=== PATIENT | female | born 1955 | race Caucasian/White ===

== ENCOUNTER 2018-06-24 06:24 | Day surgery (SDC) | payer OTHER ==
--- NOTE | 2018-06-17 15:55 | RAD REPORT ---
EXAM DESCRIPTION: RAD - Chest Pa And Lat (2 Views) - 06/17/2018 3:51 pm CLINICAL HISTORY: preop Chest pain. COMPARISON: CHEST PA AND LAT 2 VIEW dated 09/14/2012; CHEST PA AND LAT 2 VIEW dated 09/02/2012; ABDOMEN ACUTE SERIES dated 10/06/2005 FINDINGS: The lungs are clear. The heart is normal in size. No displaced fractures. IMPRESSION: No acute or concerning finding suspected.
[2018-06-17 16:39] LABS: Protime INR 1.03
--- NOTE | 2018-06-17 20:55 | EKG ---
Test Date: 2018-06-17 Test Time: 16:35:32 Enrollment Management Director: SOUMYA MEASUREMENT RESULTS: Intervals: Rate: 79 AL: 134 QRSD: 78 QT: 428 QTc: 490 [place]: P: 69 AL: 134 QRS: 27 T: 44 INTERPRETIVE STATEMENTS: Normal sinus rhythm Prolonged QT Abnormal ECG Compared to ECG 10/06/2005 21:47:44 Prolonged QT interval now present Ventricular premature complex(es) no longer present ST (T wave) deviation no longer present Electronically Signed On 06-17-18 20:54:37 SUPERVISOR RECEIVING AND PROCESSING by Eliot Iniguez
[2018-06-24] MEDS ORDERED: Ringers Lactate 1,000 ML IV ONE ×2 (06:45→08:33)
[2018-06-24] MEDS ORDERED: CEFAZOLIN/SWI 1gm 0 GM/0 ML SYR ONE (06:45)
[2018-06-24] MEDS ORDERED: LIDOCAINE 1% MPF 5 ML VIAL ONE (07:09)
[2018-06-24] MEDS ORDERED: PROPOFOL 200 MG/20 ML VIAL IV ONE (07:30)
[2018-06-24] MEDS ORDERED: MIDAZOLAM HCL 2 MG/2 ML INJ ONE (07:31)
[2018-06-24] MEDS ORDERED: LIDOCAINE 2% MPF 5 ML VIAL ONE (07:31)
[2018-06-24] MEDS ORDERED: FENTANYL CITR 100 MCG/2 ML ONE (07:31)
[2018-06-24] MEDS ORDERED: BUPIVACAINE 0.25% PF 10 ML VIAL ONE (07:33)
[2018-06-24] MEDS ORDERED: CLINDAMYCIN INJ 600 MG in NA CHLORIDE 0.9% 50 ML IV ONE (08:00)
--- NOTE | 2018-06-24 09:11 | P.BOP ---
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
[2018-06-24] MEDS: HYDROMORPHONE HCL 1 MG/ML INJ ONE ×2 (09:30→09:40)
[2018-06-24 10:11] VITALS: BP 148/73; TEMP 96.9; O2SAT 98
[2018-06-24] MEDS ORDERED: HYDROCODONE/APAP 7.5/325 MG TAB ONE (10:28)
--- NOTE | 2018-06-24 13:27 | RAD REPORT ---
EXAM DESCRIPTION: RAD - Foot Right 3 View - 06/24/2018 9:30 am CLINICAL HISTORY: Right metatarsal fracture repair COMPARISON: Pre-surgical June 11 FINDINGS: There were 50 portable C-arm views obtained during a fluoroscopic assisted placement of fr acture fixation hardware. No suspicious or unexpected finding. Fluoro time was 1.3 minutes
--- NOTE | 2018-06-24 14:20 | RAD REPORT ---
EXAM DESCRIPTION: RAD - Foot Right 2 View - 06/24/2018 9:51 am CLINICAL HISTORY: Fifth metatarsal fracture FINDINGS: A screw affixes a fracture in good alignment of the proximal fifth metatarsal.
--- NOTE | 2018-06-25 09:54 | OP ---
Date of Procedure: 06/24/2018 Surgeon: Bob Cook MD Preoperative Diagnosis: Right fifth metatarsal nonunion. Postoperative Diagnosis: Right fifth metatarsal nonunion. Procedure Performed: Closed reduction and percutaneous screw fixation of right fifth metatarsal antonia galloway. Anesthesia: General LMA. Fluids: Per Anesthesia record. Estimated Blood Loss: Less than 5 cc. Complications: None. Tourniquet Time: 40 minutes at 250 mmHg. Implants: A 5.5 mm x 50 mm Arthrex screw. Indication For Procedure: Nuha is a 63-year-old female who presented to my clinic last week with co ntinued pain of her right foot. She had been seen in my clinic in the past for a fifth metatarsal fr acture of right foot. She went to clinical and overall radiographic union with a CT scan demonstrati ng bridging callus; however, she had pain that began over the last couple of weeks. She had a repeat x-ray of her right foot, which demonstrated some gapping at the fracture consistent with nonunion. Given her continued pain, recommended surgical treatment of her nonunion. She expressed understandin g and elected to proceed with operative treatment. Description Of Procedure: After informed consent was obtained, the patient was identified in the pre operative holding area. The right lower extremity was marked. The patient was then brought back to the operating room, transferred to the operating table in supine fashion, placed under general LMA an esthesia. Right lower extremity was then prepped and draped in usual sterile fashion. A time-out wa s initiated. The correct patient and procedure were performed and identified. The patient did recei ve her preoperative prophylactic antibiotics. Right lower extremity was exsanguinated with an Esmarc h and the tourniquet was inflated at 250 mmHg. Approximately, a 2 cm longitudinal incision was made just proximal to the fifth metatarsal. Blunt dissection was then taken to the proximal aspect of the fifth metatarsal. A soft tissue protector was introduced in a high and tight position along the pro ximal aspect of the fifth metatarsal alignment along with intramedullary canal. A K-wire was then in troduced within the soft tissue protector and a guidewire was placed down the fifth metatarsal shaft antegrade fashion. Fluoroscopy was then used to ensure proper placement of the guide pin down the in tramedullary canal and there was no breakout of the distal cortex. Next, over the guide pin a cannul ated drill was then placed and passed down past the fracture line followed a tap. A 4.5 mm tap was f irst used and there was not a good amount of bite, and so a 5.5 tap was then introduced and there was good purchase within the intramedullary canal with the 5.5 screw and a 5.5 screw was selected. It w as measured in a 50 mm screw was selected. Guidewire and drill were then removed and a 5.5 mm x 50 m m screw was then placed. There was good fixation and bite of the screw within intramedullary canal a nd compression was noted at the fracture site. The fracture site was noted to have more of hypertrop hic nonunion, which was consistent with more of need for stabilization and at that point, it was elec gerry to proceed with just fixation of the fracture without bone grafting. The wound was then irrigate d thoroughly with normal saline. Skin was approximated using a 3-0 nylon. Sterile dressings were ap plied. The patient was placed in a posterior splint. She was awakened and transferred to PACU in st able condition. Postoperative Plan: She will be nonweightbearing of the right lower extremity and follow up in my cl inic in 2 weeks for wound check and suture removal. CV/MODL Voice ID: [id number] Report ID: [id number]
== END 2018-06-24 11:18 | disposition home or self-care (01) ==
LOC: OR 06:24
PROVIDERS: ATTEND Orthopaedic Surgery Sports Medicine
PROC: 0QSN34Z Reposition Right Metatarsal with Internal Fixation Device, Percutaneous Approach (ICD-10-PCS; principal; 2018-06-24 07:30)
DX: S92.354K Nondisplaced fracture of fifth metatarsal bone, right foot, subsequent encounter for fracture with nonunion (principal); M06.849 Other specified rheumatoid arthritis, unspecified hand; I10 Essential (primary) hypertension; E78.00 Pure hypercholesterolemia, unspecified; K21.9 Gastro-esophageal reflux disease without esophagitis; Z88.2 Allergy status to sulfonamides; Z87.891 Personal history of nicotine dependence; Z82.61 Family history of arthritis; Z82.49 Family history of ischemic heart disease and other diseases of the circulatory system
CPT/HCPCS: 36415; 71046; 85610; 85730; 93005; J0690; J1170; J2250; J2704; J3010

== ENCOUNTER 2019-03-05 08:50 | Emergency (ER) | payer OTHER ==
--- OUTSIDE RECORDS SUMMARY | 2019-03-05 08:51 | XMS REPORT ---
:1955 [facility] [address] [place] [address] Care Team Providers Name Role Phone Unavailable Unavailable Unavailable Payers Payer Name Policy Type Policy Number Effective Date Expiration Date Problems This patient has no known problems. Allergies, Adverse Reactions, Alerts Allergy Name Allergy Status Severity Reaction(s) Onset Inactive Treating Comments Type Date Date Clinician Penicillins DA Active ID 2012-0 04-22 00:00: 00 Sulfa DA Active ID (Sulfonamide 04-22 Antibiotics) 00:00: 00 erythromycin DA Active ID 2012- base 04-22 00:00: 00 Medications This patient has no known medications.
[2019-03-05] MEDS ORDERED: HYDROCODONE/APAP 10/325 TAB ONE (09:15)
--- NOTE | 2019-03-05 10:40 | RAD REPORT ---
EXAM DESCRIPTION: RAD - Humerus Right - 03/05/2019 9:59 am CLINICAL HISTORY: fall Fall, trauma, right shoulder pain COMPARISON: No comparisons FINDINGS: Mild AC joint degenerative changes are present. No acute fracture or dislocation evident.
--- NOTE | 2019-03-05 10:44 | RAD REPORT ---
EXAM DESCRIPTION: RAD - Shoulder Right 2 View - 03/05/2019 10:01 am CLINICAL HISTORY: fall Trauma, fall COMPARISON: No comparisons FINDINGS: AC joint and glenohumeral joint arthritic changes are noted. No acute fracture or dislocat ion is evident.
--- NOTE | 2019-03-05 10:54 | RAD REPORT ---
EXAM DESCRIPTION: RAD - Hip Right 2 View - 03/05/2019 9:57 am CLINICAL HISTORY: fall Trauma, fall, hip pain COMPARISON: No comparisons FINDINGS: Degenerative changes are present in the right hip, mild to moderate in severity. No defini tive fracture seen. If the patient is unable to bear weight, consider MR imaging followup.
--- NOTE | 2019-03-05 10:58 | RAD REPORT ---
EXAM DESCRIPTION: RAD - Lumbar Spine 3 Views - 03/05/2019 9:59 am CLINICAL HISTORY: fall Radiculopathy COMPARISON: No comparisons FINDINGS: Vertebral body heights appear maintained. No compression fracture noted. Mild disc thinnin g is present at L4-5 and L5-S1. Prominent facet hypertrophy also noted at these levels. IMPRESSION: Mild to moderate lower lumbar spondylosis.
--- NOTE | 2019-03-05 11:00 | RAD REPORT ---
EXAM DESCRIPTION: RAD - Pelvis - 03/05/2019 9:57 am CLINICAL HISTORY: fall Fall, trauma, pain COMPARISON: No comparisons FINDINGS: No acute fracture or dislocation evident.
[2019-03-05] MEDS ORDERED: dexAMETHasone 10 MG/ML VIAL ONE (11:10)
[2019-03-05] MEDS ORDERED: MORPHINE 4 MG/ML SYR ONE (11:11)
[2019-03-05] MEDS ORDERED: DIAZEPAM 5 MG TABLET ONE (11:11)
--- NOTE | 2019-03-05 14:56 | RAD REPORT ---
EXAM DESCRIPTION: MRI - Lumbar Spine Wo Con - 03/05/2019 2:38 pm CLINICAL HISTORY: Fall, back pain, acute onset right leg weakness COMPARISON: Lumbar spine films March 05, 2019, MRI August 2015 TECHNIQUE: Sagittal T1-weighted, T2-weighted and T2-STIR weighted sequences were obtained. Axial T1 -weighted and heavily T2-weighted sequenceswere obtained through the lumbar disc levels. FINDINGS: Lumbar bodies are normal in height and alignment. Scattered fatty marrow degenerative fabian ges are present. No suspicious marrow signal. No paraspinal masses. Conus is normal with no clumping or thickening of the cauda equina. T12-L1 level: No significant findings. L1-2 level: No significant findings. L2-3 level: No significant findings. L3-4 level: Moderately prominent disc bulge is present extending across the central canal and into ea ch exit foramen. Prominent facet joint degenerative changes are present along with ligamentous thicke matt. Mild foraminal encroachment changes are present with perineural fat still surrounding the exiti ng nerve roots. Midline canal diameter is 12 mm. Disc shows desiccation change. L4-5 level: Disc is desiccated. There is a mild bulging of disc material across the central canal and into each exit foramen. Facet degenerative change and ligamentous thickening are present. In the rig ht posterior central canal at this level there is a 12 x 6 millimeter focus of hypointense T1 and T2/ IR signal. This is associated with the posterior elements. Provided history indicates no lumbar surge ry; however, there appears to be a partial laminectomy on the right. T2 STIR imaging shows hyperinten se signal posterior to the facet joints and lamina. Spinal stenosis to 6 mm noted. L5-S1 level: No herniation or significant disc bulge. Facet degenerative change and ligamentous thick ening present. Small fluid collection is seen posterior to the right facet joint. IMPRESSION: Significant L4-5 central spinal stenosis to 6 mm noted along with right foraminal stenos is. Patient has advanced facet degenerative change at L4-5 and what appears to be a partial laminectomy o n the right. Provided history indicated no surgery. Patient likely has scar tissue in this region. The 12 x 6 mm hypointense focus along the right ligament may be focal calcification related to prior injury or surgery. This is the primary factor for the spinal stenosis. Disc bulge and prominent facet degenerative change L3-4 resulting in mild foraminal encroachment but no central spinal stenosis. No compression fracture or acute vertebral body finding.
--- NOTE | 2019-03-05 15:07 | RAD REPORT ---
EXAM DESCRIPTION: MRI - Hip Right Wo Cont - 03/05/2019 2:37 pm CLINICAL HISTORY: Fall, pelvic pain COMPARISON: Pelvis plain films same date, right hip films same date TECHNIQUE: Multiplanar imaging of the pelvis performed using T1 weighted, T2 fat saturation, proton density and T2 stir sequencing. FINDINGS: Sacral ala intact. No acute fractures of the bony pelvis seen. No proximal femur fracture. No AVN or focal femoral head abnormality at either hip joint. No joint effusion. There is extensive edema signal surrounding the right ischium. There is slight cortical irregularity at the inferior margin of the ischium. The biceps femoris and semimembranosus tendons appear to have been avulsed from the ischium. Tendons are retracted inferiorly from the ischium and there is signifi cant edema and hemorrhagic material in the surrounding tissues. On a pelvis and hip MRI protocol full extent of this injury is difficult to document. IMPRESSION: Avulsion of the right biceps femoris and semimembranosus tendons from the ischium. There is significant surrounding edema and some hemorrhagic material in the soft tissues surrounding the i schium. No hip fracture. No acute pelvic finding otherwise noted.
--- NOTE | 2019-03-05 16:08 | ER ---
Nurse's Notes [facility] Name: Nuha Steele Age: 63 yrs Sex: Female : 1955 Arrival Date: 03/05/2019 Time: 08:52 Bed 15 Private MD: Diagnosis: Sprain of hip;Sprain of shoulder joint Presentation: 03/05 09:01 Presenting complaint: EMS states: MECHANICAL FALL THIS AM, R SHOULDER AND HIP PAIN. bp Transition of care: patient was not received from another setting of care. Onset of symptoms was March 05, 2019 at 07:00. Risk Assessment: Do you want to hurt yourself or someone else? Patient reports no desire to harm self or others. Initial Sepsis Screen: Does the patient meet any 2 criteria? No. Patient's initial sepsis screen is negative. Does the patient have a suspected source of infection? No. Patient's initial sepsis screen is negative. Care prior to arrival: None. 09:01 Method Of Arrival: EMS: [facility] bp 09: Acuity: GIANLUCA 3 bp Triage Assessment: 09:03 General: Appears in no apparent distress. uncomfortable, Behavior is cooperative, bp appropriate for age, anxious. Pain: Complains of pain in right hip, anterior aspect of right shoulder and right leg. EENT: No deficits noted. Neuro: No deficits noted. Cardiovascular: No deficits noted. Respiratory: No deficits noted. GI: No signs and/or symptoms were reported involving the gastrointestinal system. : No signs and/or symptoms were reported regarding the genitourinary system. Derm: No deficits noted. Musculoskeletal: No deficits noted. Historical: - Allergies: 09:03 Sulfa (Sulfonamide Antibiotics); bp - Home Meds: 09:03 gabapentin oral oral [Active]; losartan oral oral [Active]; Celebrex Oral [Active]; bp - PMHx: 09:03 Rheumatoid Arthritis; Hypertension; bp - Immunization history:: Adult Immunizations up to date. - Social history:: Smoking status: Patient/guardian denies using tobacco. - Ebola Screening: : No symptoms or risks identified at this time. Screenin:06 Abuse screen: Denies threats or abuse. Denies injuries from another. Nutritional bp screening: No deficits noted. Tuberculosis screening: No symptoms or risk factors identified. Fall Risk None identified. Assessment: 09:06 General: SEE TRIAGE NOTE. bp 09:30 Reassessment: PT TO RADIOLOGY. bp 10:06 Reassessment: PT RETURNED FROM RADIOLOGY. bp 11:00 Reassessment: PT OUT OF BED TO B/S COMMODE. bp 12:00 Reassessment: PROVIDER AT B/S FOR RE-EVAL, PT AFFIRMS UNABLE TO AMBULATE. bp 12:59 Reassessment: MRI PENDING. bp 13:29 Reassessment: PT TO MRI. bp 15:01 Reassessment: PT RETURNED FROM MRI. bp 16:13 Reassessment: PT D/C HOME VIA W/C WITH FAMILY, DX WITH HIP AND SHOULDER SPRAIN. bp Vital Signs: 09:03 BP 150 / 68; Pulse 72; Resp 18; Temp 98; Pulse Ox 100% ; Weight 72.57 kg; bp 10:07 BP 153 / 77; Pulse 76; Resp 16; Pulse Ox 100% ; bp 12:00 BP 146 / 77; Pulse 70; Resp 16; Pulse Ox 99% ; bp 12:59 BP 145 / 82; Pulse 77; Resp 16; Pulse Ox 99% ; bp 15:02 BP 133 / 79; Pulse 77; Resp 16; Pulse Ox 96% ; bp ED Course: 08:52 Patient arrived in ED. em1 08:58 Rafa Mccartney, RN is Primary Nurse. bp 09:01 Triage completed. bp 09:03 Arm band placed on. bp 09:06 Campos Kennedy PA is PHCP. jmm 09:06 Remington Lu MD is Attending Physician. jmm 09:06 Patient has correct armband on for positive identification. Bed in low position. Call bp light in reach. Side rails up X2. Adult w/ patient. 09:59 Humerus Right XRAY In Process Unspecified. EDMS 09:59 Shoulder Right (2 View) XRAY In Process Unspecified. EDMS 09:59 Pelvis XRAY In Process Unspecified. EDMS 09:59 Hip Right 2 View XRAY In Process Unspecified. EDMS 09:59 Lumbar Spine (3 Views) XRAY In Process Unspecified. EDMS 13:40 Patient moved to MRI via stretcher. em2 13:52 MRI Lumbar Spine wo Con In Process Unspecified. EDMS 14:31 Hip Right Wo Cont In Process Unspecified. EDMS 16:07 Bob Cook MD is Referral Physician. [facility] 16:13 No provider procedures requiring assistance completed. Patient did not have IV access bp during this emergency room visit. Administered Medications: 09:23 Drug: [place] 10 mg-325 mg 1 tabs Route: PO; bp 11:17 Follow up: Response: No adverse reaction; Pain is decreased bp 11:16 Drug: morphine 4 mg Route: IM; Site: right deltoid; bp 12:00 Follow up: Response: Pain is decreased bp 11:16 Drug: Decadron 10 mg Route: IM; Site: Other; bp 12:00 Follow up: Response: Pain is decreased bp 11:17 Drug: Valium 5 mg Route: PO; bp 12:00 Follow up: Response: Pain is decreased bp Outcome: 16:07 Discharge ordered by . m 16:14 Discharged to home via wheelchair, with family. bp 16:14 Condition: stable 16:14 Discharge instructions given to patient, family, Instructed on discharge instructions, follow up and referral plans. Demonstrated understanding of instructions, follow-up care. 16:15 Patient left the ED. bp Signatures: Dispatcher [employer] EDMS Campos Kennedy PA PA Fer Pereira em1 Dale Muller em2 Rafa Mccartney, RN RN bp Corrections: (The following items were deleted from the chart) 16:15 16:13 Reassessment: PT D/C ON HOLD FOR TRANSPORT bp bp
--- NOTE | 2019-03-05 16:08 | EDPHYS ---
Physician Documentation [facility] Name: Nuha Steele Age: 63 yrs Sex: Female : 1955 Arrival Date: 03/05/2019 Time: 08:52 Bed 15 Private MD: ED Physician Remington Lu HPI: 03/05 10:53 This 63 yrs old Female presents to ER via EMS with complaints of shoulder jmm pain, right hip pain. 10:53 Details of fall: The patient fell from an upright position. Onset: The symptoms/episode jmm began/occurred acutely, just prior to arrival. Associated injuries: The patient sustained right shoulder, back, right hip. This is a 63 year old female with a history of RA, HTN that presents to the ED with complaints of right shoulder pain and right hip pain after a fall which occurred this morning at approx 0800. Patient states she dropped an ice pack then slipped on it falling onto her right side. Denies head injury. Denies LOC, denies vomiting. Patient states also having lower back pain. pain radiates down the right leg. denies weakness, bowel, or bladder issues. . Historical: - Allergies: 09:03 Sulfa (Sulfonamide Antibiotics); bp - Home Meds: 09:03 gabapentin oral oral [Active]; losartan oral oral [Active]; Celebrex Oral [Active]; bp - PMHx: 09:03 Rheumatoid Arthritis; Hypertension; bp - Immunization history:: Adult Immunizations up to date. - Social history:: Smoking status: Patient/guardian denies using tobacco. - Ebola Screening: : No symptoms or risks identified at this time. ROS: 10:53 Constitutional: Negative for fever, chills, and weight loss, Cardiovascular: Negative jmm for chest pain, palpitations, and edema, Respiratory: Negative for shortness of breath, cough, wheezing, and pleuritic chest pain. 10:53 MS/extremity: Positive for injury or acute deformity, pain. 10:53 All other systems are negative. Exam: 10:53 Constitutional: This is a well developed, well nourished patient who is awake, alert, jmm and in no acute distress. Head/Face: atraumatic. Eyes: EOMI, no conjunctival erythema appreciated ENT: Moist Mucus Membranes Neck: Trachea midline, Supple Chest/axilla: Normal chest wall appearance and motion. Cardiovascular: Regular rate and rhythm. No edema appreciated Respiratory: Normal respirations, no respiratory distress appreciated Back: Normal ROM Skin: General appearance color normal 10:53 Musculoskeletal/extremity: ROM: right anterior shoulder pain on palpation, full radial pulse, full word processor operator strength, compartments are soft, NVI. 10:53 Musculoskeletal/extremity: FROM appreciated to the right hip, mild pain on internal rotations, full dorsalis pulse, compartments are soft, NVI. 10:53 Skin: Appearance: Color: normal in color. 10:53 Neuro: Orientation: is normal, Mentation: is normal, Memory: is normal. 10:53 Psych: Behavior/mood is pleasant, cooperative. Vital Signs: 09:03 BP 150 / 68; Pulse 72; Resp 18; Temp 98; Pulse Ox 100% ; Weight 72.57 kg; bp 10:07 BP 153 / 77; Pulse 76; Resp 16; Pulse Ox 100% ; bp 12:00 BP 146 / 77; Pulse 70; Resp 16; Pulse Ox 99% ; bp 12:59 BP 145 / 82; Pulse 77; Resp 16; Pulse Ox 99% ; bp 15:02 BP 133 / 79; Pulse 77; Resp 16; Pulse Ox 96% ; bp MDM: 09:09 Patient medically screened. [facility] 15:45 Data reviewed: vital signs, nurses notes. Counseling: I had a detailed discussion with calvin the patient and/or guardian regarding: the historical points, exam findings, and any diagnostic results supporting the discharge/admit diagnosis, lab results, radiology results, the need for outpatient follow up, to return to the emergency department if symptoms worsen or persist or if there are any questions or concerns that arise at home. 08 09:14 Order name: Humerus Right XRAY; Complete Time: 10:45 [facility] 03/05 09:14 Order name: Shoulder Right (2 View) XRAY; Complete Time: 10:45 [facility] 03/05 09:14 Order name: Pelvis XRAY; Complete Time: 11:01 [facility] 03/05 09:14 Order name: Hip Right 2 View XRAY; Complete Time: 11:01 [facility] 03/05 09:14 Order name: Lumbar Spine (3 Views) XRAY; Complete Time: 11:01 [facility] 03/05 12:28 Order name: MRI Lumbar Spine wo Con; Complete Time: 14:59 [facility] 03/05 11:57 Order name: Misc. Order; Complete Time: 12:08 [facility] 03/05 12:33 Order name: Hip Right Wo Cont; Complete Time: 15:09 EDWY Administered Medications: 09:23 Drug: [place] 10 mg-325 mg 1 tabs Route: PO; bp 11:17 Follow up: Response: No adverse reaction; Pain is decreased bp 11:16 Drug: morphine 4 mg Route: IM; Site: right deltoid; bp 12:00 Follow up: Response: Pain is decreased bp 11:16 Drug: Decadron 10 mg Route: IM; Site: Other; bp 12:00 Follow up: Response: Pain is decreased bp 11:17 Drug: Valium 5 mg Route: PO; bp 12:00 Follow up: Response: Pain is decreased bp Disposition: 03/05/19 16:07 Discharged to Home. Impression: Sprain of hip, Sprain of shoulder joint. - Condition is Stable. - Discharge Instructions: Hip Pain, Shoulder Sprain. - Medication Reconciliation Form, Thank You Letter, Antibiotic Education, Prescription Opioid Use, Work release form form. - Follow up: Bob Cook MD; When: 1 - 2 days; Reason: Recheck today's complaints, Continuance of care, Re-evaluation by your physician. Addendum: 03/08/2019 09:29 Co-signature as Attending Physician, Remington Lu MD I agree with the assessment and k dr plan of care. Signatures: Dispatcher [employer] EDWY Remington Lu MD MD [facility] Campos Kennedy PA PA [facility] Rafa Mccartney, RN RN bp Corrections: (The following items were deleted from the chart) 03/05 16:15 16:07 03/05/2019 16:07 Discharged to Home. Impression: Sprain of hip; Sprain of bp shoulder joint. Condition is Stable. Forms are Work release form, Medication Reconciliation Form, Thank You Letter, Antibiotic Education, Prescription Opioid Use. Follow up: Dr. Bob Cook; When: 1 - 2 days; Reason: Recheck today's complaints, Continuance of care, Re-evaluation by your physician. [facility]
[2019-03-05 16:31] VITALS: TEMP 98
[2019-03-05 16:36] VITALS: BP 133/79; O2SAT 96
== END 2019-03-05 16:15 | disposition home or self-care (01) ==
LOC: ER 08:50
DX: S43.401A Unspecified sprain of right shoulder joint, initial encounter (principal); S73.101A Unspecified sprain of right hip, initial encounter; W01.0XXA Fall on same level from slipping, tripping and stumbling without subsequent striking against object, initial encounter; Y93.89 Activity, other specified; Y92.9 Unspecified place or not applicable; I10 Essential (primary) hypertension; Z88.2 Allergy status to sulfonamides
CPT/HCPCS: 72100; 72170; 73502; 73060; 73030; 72148; 73721; 96372; 99284; J1100

== ENCOUNTER 2019-04-09 05:55 | Day surgery (SDC) | payer OTHER ==
[2019-04-01 14:15] LABS: Absolute Lymphocytes (CBC) 2.8 K/uL (0.7-4.9); Basophils % 0.9 % (0-1.3); Hematocrit 40.4 % (36.0-45.0); Lymphocytes % 37.8 % (15.3-44.8); MPV 9.7 fL (7.6-11.3); RBC Red Blood Cell Count 4.47 M/uL (3.86-4.86)
[2019-04-01 14:19] LABS: Protime INR 1.02
[2019-04-01 14:37] LABS: BUN Blood Urea Nitrogen 12 mg/dL (7-18); Bicarbonate 31 mmol/L (21-32); Glucose Level 84 mg/dL (74-106); Potassium 4.4 mmol/L (3.5-5.1); Sodium Level 141 mmol/L (136-145)
--- OUTSIDE RECORDS SUMMARY | 2019-04-09 05:57 | XMS REPORT ---
:1955 [facility] Address [address] [place] [address] Care Team Providers Name Role Phone Unavailable Unavailable Unavailable Payers Payer Name Policy Type Policy Number Effective Date Expiration Date Problems This patient has no known problems. Allergies, Adverse Reactions, Alerts Allergy Name Allergy Status Severity Reaction(s) Onset Inactive Treating Comments Type Date Date Clinician Penicillins DA Active [place] 2012-0 04-22 00:00: 00 Sulfa DA Active [place] (Sulfonamide 04-22 Antibiotics) 00:00: 00 erythromycin DA Active [place] 2012- base 04-22 00:00: 00 Medications This patient has no known medications.
[2019-04-09] MEDS ORDERED: CEFAZOLIN/SWI 1gm 1 GM/10 ML SYR ONE (06:06)
[2019-04-09] MEDS ORDERED: Ringers Lactate 1,000 ML IV ONE ×2 (06:06→08:21)
[2019-04-09] MEDS ORDERED: MIDAZOLAM HCL 2 MG/2 ML INJ ONE ×2 (06:44→06:47)
[2019-04-09] MEDS ORDERED: LIDOCAINE 2% MPF 5 ML VIAL ONE (06:44)
[2019-04-09] MEDS ORDERED: FENTANYL CITR 100 MCG/2 ML ONE ×2 (06:44→06:46)
[2019-04-09] MEDS ORDERED: PROPOFOL 200 MG/20 ML VIAL IV ONE (06:44)
[2019-04-09] MEDS ORDERED: ROCURONIUM 50 MG/5 ML VIAL IV ONE (06:45)
[2019-04-09] MEDS ORDERED: dexAMETHasone 10 MG/ML VIAL ONE (06:46)
[2019-04-09] MEDS ORDERED: ROPLVACAINE HCL 20 ML ONE (06:47)
[2019-04-09] MEDS ORDERED: EPINEPHRINE/PF 1 MG/ML AMP ONE (07:07)
[2019-04-09] MEDS ORDERED: GLYCOPYRROLATE 0.2 MG/ML SYR ONE (08:04)
[2019-04-09] MEDS ORDERED: EPHEDRINE SULF 50 MG/ML VIAL ONE (08:09)
[2019-04-09] MEDS ORDERED: KETOROLAC 30 MG/ML INJ ONE (09:40)
--- NOTE | 2019-04-09 10:11 | P.BOP ---
Preoperative diagnosis: right rotator cuff tear, right shoulder SLAP tear, impingement syndrome Postoperative diagnosis: same Primary procedure: right shoulder arthroscopic rotator cuff repair Secondary procedure: right shoulder arthroscopic biceps tenotomy with SLAP debridement Other procedure(s): right shoulder arthroscopic subacromial decompression Estimated blood loss: 10 cc Specimen: none Findings: see dictation Anesthesia: General Complications: None Implants: 1- 5.5 mm Arthrex Corkscrew, 3 - 4.75 mm Arthrex corkscrews Fluids & blood products: per anesthesia record Transferred to: Recovery Room Condition: Good
[2019-04-09] MEDS ORDERED: MEPERIDINE HCL 25 MG/0.5 ML ONE (10:33)
--- NOTE | 2019-04-09 10:55 | RAD REPORT ---
EXAM DESCRIPTION: RAD - Shoulder 1 View - 04/09/2019 10:43 am CLINICAL HISTORY: Right shoulder surgery FINDINGS: Frontal view of the right shoulder was obtained. No fracture or dislocation is seen. Mild narrowing AC joint
[2019-04-09] MEDS ORDERED: HYDROCODONE/APAP 7.5/325 MG TAB ONE (11:47)
[2019-04-09 12:35] VITALS: BP 129/60; TEMP 97.5; O2SAT 95
--- NOTE | 2019-04-12 09:53 | OP ---
Date of Procedure: 04/09/2019 Surgeon: Bob Cook MD Preoperative Diagnoses: 1. Right shoulder rotator cuff tear. 2. Right shoulder SLAP tear. 3. Right shoulder impingement syndrome. Postoperative Diagnoses: 1. Right shoulder rotator cuff tear. 2. Right shoulder SLAP tear. 3. Right shoulder impingement syndrome. Procedures Performed: 1. Right shoulder arthroscopic rotator cuff repair with the subscapularis and right shoulder arthroscopic biceps tenotomy and SLAP tear debridement. 2. Right shoulder arthroscopic subacromial decompression. Anesthesia: General endotracheal. Fluids: Per Anesthesia record. Estimated Blood Loss: Less than 10 cc. Complications: None. Implants: One 5.5 mm Arthrex Corkscrew, 3- 4.75 mm Arthrex SwiveLock. Indication For Procedure: Nuha is a 64-year-old female, who presented to my clinic after sustaining multiple falls with pain to her right shoulder. She sustained an injury to her right shoulder and MRI findings were consistent with a tear of her supraspinatus and subscapularis as well as a SLAP tear with impingement syndrome. I discussed with the patient at length risks and benefits associated with operative and nonoperative treatment. She expressed understanding and elected to proceed with operative treatment. Description Of Procedure: After informed consent was obtained, the patient was identified in the preoperative holding area. The right upper extremity was marked. The patient was then brought back to the PACU, underwent an interscalene block performed by Anesthesia. She was then taken back to the operating room, transferred to the operating table in supine fashion and placed under general endotracheal anesthesia. She was then placed in a beach chair position with her extremities well padded. The right upper extremity was then examined. The patient had full range of motion. No instability noted. The right upper extremity was then prepped and draped in usual sterile fashion. A time-out was initiated. The correct patient and procedure were confirmed and identified. The patient had received her preoperative prophylactic antibiotics. Via the posterior portal position, a spinal needle was introduced in the glenohumeral joint and the glenohumeral joint was injected with 30 mL of normal saline to distend the capsule. A stab incision was made posteriorly. Then, arthroscope was brought in via the posterior portal position. Under direct visualization, a standard anterior portal was created and an Arthrex PassPort cannula was used. A superior anterolateral cannula was placed as intraoperative findings demonstratated a subscapularis tear. Diagnostic arthroscopy was performed. The patient was noted to have a type 2 SLAP tear that extended into the biceps tendon anchor. Biceps tenotomy was performed using meniscal biter and an arthroscopic shaver. The superior labrum and SLAP tear were debrided with an arthroscopic shaver. There was no significant chondral damage of the humeral head and no significant chondral injury noted of the glenoid surface. Anterior and posterior labrums were found to be intact with both the inferior labrums. There were no loose bodies within the axillary pouch. The superior aspect of the subscapularis was noted to be torn and retracted of of the lesser tuberosity. The lesser tuberosity was then prepared using an arthroscopic shaver to debride any soft tissue off it. Using the superior anterolateral cannula, a rasp was introduced and it was noted that the subscapularis tear was superior and retracted off of the lesser tuberosity. A scorpion FastPass suture passer was then used to pass a FiberTape suture in an inverted mattress fashion and the subscapularis was repaired using a 4.75 mm SwiveLock anchor, the subscapularis tendon was reduced to the lesser tuberosity and there was good overall reduction of the tendon. Next, the arthroscope was brought into the subacromial space and a subacromial bursectomy was performed after creating lateral portal and placing a cannula. There was a tear of the supraspinatus tendon which was retracted anterior to the level of glenoid. Arthroscopic grasper was brought into the joint and it was noted that the patient did have a reducible tendon and the tendon was reducible at the greater tuberosity. A 5.5 mm corkscrew anchor was placed just lateral to the articular surface. Sutures were then passed through the supraspinatus in anterior to posterior fashion in a horizontal mattress fashion. They were tied down for medial row fixation with reduction of the supraspinatus onto greater tuberosity. There was noted to be some fraying of the coracoacromial ligament as well as some spurring of the inferior aspect of the acromion. Radiofrequency ablator was then used to debride off the undersurface of the acromion and an acromioplasty was performed using an arthroscopic bur. The arthroscope was then brought back into the shoulder joint and it was noted to show overall good reduction of the supraspinatus onto its footprint. Arthroscopic instruments were then removed without complication. Wounds were then irrigated thoroughly with normal saline. Subcutaneous tissue was approximated using a 2-0 Vicryl. Skin was approximated using a 3-0 Monocryl. Sterile dressings were applied. Patient was placed in a shoulder immobilizer, awakened, and transferred to the PACU in stable condition. Postoperative Plan: She will be nonweightbearing of her right upper extremity and be in the shoulder immobilizer. We will begin physical therapy at approximately 4 weeks postoperatively. SUSAN/SARAH Voice ID: [id number] Report ID: [id number]
== END 2019-04-09 12:21 | disposition home or self-care (01) ==
LOC: OR 05:55
PROVIDERS: ATTEND Orthopaedic Surgery Sports Medicine
PROC: 0RNJ4ZZ Release Right Shoulder Joint, Percutaneous Endoscopic Approach (ICD-10-PCS; 2019-04-09)
PROC: 0RBJ4ZZ Excision of Right Shoulder Joint, Percutaneous Endoscopic Approach (ICD-10-PCS; 2019-04-09)
PROC: 0LQ14ZZ Repair Right Shoulder Tendon, Percutaneous Endoscopic Approach (ICD-10-PCS; principal; 2019-04-09 07:30)
DX: S46.011A Strain of muscle(s) and tendon(s) of the rotator cuff of right shoulder, initial encounter (principal); S43.431A Superior glenoid labrum lesion of right shoulder, initial encounter; M75.21 Bicipital tendinitis, right shoulder; M75.41 Impingement syndrome of right shoulder; M06.9 Rheumatoid arthritis, unspecified; I10 Essential (primary) hypertension; E78.00 Pure hypercholesterolemia, unspecified; G47.33 Obstructive sleep apnea (adult) (pediatric); K21.9 Gastro-esophageal reflux disease without esophagitis; Z88.2 Allergy status to sulfonamides; Z88.0 Allergy status to penicillin; Z85.41 Personal history of malignant neoplasm of cervix uteri
CPT/HCPCS: 85025; 80048; 36415; 85610; 85730; 73020; 29827; 29826; 29822; J2704; J0171; J2250; J3010; J1100; J2175; J2795; J0690